=== PATIENT | female | born 1985 | race Two or more races ===

== ENCOUNTER 2017-02-09 10:33 | Emergency (ER) | payer OTHER ==
[~2017-02-09] VITALS: Ht 160 cm; Wt 61.2 kg
--- NOTE | 2017-02-09 10:35 | NUR ---
PT BIB SELF BILATERAL GROIN PAIN X 4 DAYS; HAD FEVER SUNDAY NIGHT; + DYSURIA C/O LABIAL PAIN/INNER LABIA WELL X 2 DAYS NOW; + ACTIVE;PROTECTED SEX . VSS. AWAITING MD ORDER
[2017-02-09] MEDS ORDERED: DIVA500T2 PO (10:44)
[2017-02-09] MEDS ORDERED: ETHO250S2 PO (10:44)
--- NOTE | 2017-02-09 10:45 | NUR ---
AT BEDSIDE FOR EVAL
--- NOTE | 2017-02-09 11:00 | NUR ---
URINE SAMPLE COLLECTED SENT TO LAB
--- NOTE | 2017-02-09 11:10 | NUR ---
[address] AT BEDSIDE
[2017-02-09 11:31] LABS: APPEARANCE,URINE Clear (CLEAR); BILIRUBIN,URINE Negative (NEGATIVE); BLOOD, URINE Small Ery/uL (NEGATIVE); COLOR,URINE Yellow (YELLOW); KETONES,URINE Negative (NEGATIVE); LEUKOCYTE ESTERASE ,URINE Small (NEGATIVE); NITRITE, URINE Negative (NEGATIVE); PH,URINE 5.5 (5.0-8.0); PROTEIN,URINE Negative (NEGATIVE); UGLUCOSE Negative (NEGATIVE); UROBILINOGEN,URINE 0.2 EU/dL (0.2)
[2017-02-09 11:48] LABS: ADD URINE CULTURE YES; BACTERIA,URINE Few /HPF (None Seen)
--- NOTE | 2017-02-09 11:50 | NUR ---
DR WISEMAN AT BEDSIDE FOR REEVAL
[2017-02-09] MEDS ORDERED: AZITHROMYCIN 250 MG TABLET ONE (11:53)
[2017-02-09] MEDS ORDERED: ACYCLOVIR 200 MG CAPSULE ONE (11:54)
[2017-02-09] MEDS ORDERED: LIDOCAINE /MPF 1% VIAL 5 ML VIAL ONE (11:54)
[2017-02-09] MEDS ORDERED: CEFTRIAXONE 500 MG VIAL ONE (11:54)
[2017-02-09] MEDS ORDERED: ACYCLOVIR 200 MG CAPSULE PO ONE (12:00)
[2017-02-09] MEDS ORDERED: AZITHROMYCIN 250 MG TABLET PO ONE (12:00)
[2017-02-09] MEDS ORDERED: CEFTRIAXONE 500 MG VIAL IM ONE (12:00)
--- NOTE | 2017-02-09 12:07 | NUR ---
Patient discharged to home in stable condition. Written and verbal after care instructions given. Patient verbalizes understanding of instruction.
[2017-02-09 12:08] VITALS: BP 110/72
[2017-02-12 13:14] LABS: *NEISSERIA GONORRHOEAE NAA Negative (Negative); CHLAMYDIA TRACHOMATIS NAA Negative (Negative)
== END 2017-02-09 12:10 | disposition home or self-care (01) ==
LOC: ER 10:34
DX: B00.9 Herpesviral infection, unspecified (principal); G40.909 Epilepsy, unspecified, not intractable, without status epilepticus
CPT/HCPCS: 76856; 81001; 84703; 87077; 87086; 87491; 87591; 96372; 99285; A4606; J0696; J3490; Z7610; 81000-TC

== ENCOUNTER 2022-04-18 12:36 | Outpatient (CLI) | payer BC ==
[~2022-04-18 12:36] MED LIST: DIVA500T2 PO; ETHO250S3 PO
== END 2022-04-18 23:59 | disposition home or self-care (01) ==
LOC: MSC 12:36
PROVIDERS: ATTEND Anesthesiology
DX: M47.27 Other spondylosis with radiculopathy, lumbosacral region (principal); M51.26 Other intervertebral disc displacement, lumbar region; G89.4 Chronic pain syndrome; Z79.899 Other long term (current) drug therapy

== ENCOUNTER 2022-04-28 04:58 | Outpatient (CLI) | payer BC | END 2022-04-28 23:59 | disposition home or self-care (01) | LOC: LAB 04:58 | PROVIDERS: ATTEND Anesthesiology | DX: Z01.812 Encounter for preprocedural laboratory examination (principal); Z20.822 Contact with and (suspected) exposure to COVID-19 | CPT/HCPCS: U0003; C9803 ==

== ENCOUNTER 2022-05-04 08:09 | Day surgery (SDC) | payer BC ==
--- NOTE | 2022-05-04 09:05 | NUR ---
RN NOTE RECEIVED PATIENT AMBULATORY FROM HOME ACCOMPANIED BY MOTHER NAMRATA @[id number]. PATIENT FOR LUMBAR EPIDURAL STEROID INJECTION WITH DR. YUSUF. PATIENT HAS BEEN NPO SINCE MIDNIGHT. PRE-OP CHECKLIST DONE WITH PATIENT. CONSENTS SIGNED. PATIENT PICKED -UP @ 0900 VIA BED IN STABLE CONDITION.
[2022-05-04] MEDS ORDERED: methylPREDNISolone ACETATE 80 MG/ML VIAL ONE (09:29)
[2022-05-04] MEDS ORDERED: LIDOCAINE HCL/MPF 1% 30 ML VIAL IJ ONE (09:29)
[2022-05-04] MEDS ORDERED: BUPIVACAINE 0.25% 75 MG/30 ML VIAL ONE (09:29)
--- NOTE | 2022-05-04 10:00 | NUR ---
RN NOTE PATIENT BACK FROM PROCEDURE IN STABLE CONDITION. VITAL SIGNS: 103/53, 63, 97.6, 18, SPO2 99% IN ROOM AIR. PATIENT OK TO BE DISCHARGE HOME ONCE STABLE.
--- NOTE | 2022-05-04 10:59 | NUR ---
RN NOTES PATIENT DISCHARGED HOME IN STABLE CONDITION. EXITCARE FOLDER GIVEN TO PATIENT, DISCHARGE INSTRUCTIONS PROVIDED WITH VERBALIZATION OF UNDERSTANDING. ARM NAME BAND REMOVED. PATIENT LEFT UNIT @1055 AMBULATORY WITH MOTHER NAMRATA. CN AWARE OF DISCHARGE.
== END 2022-05-04 13:00 | disposition home or self-care (01) ==
LOC: DS 08:09 → UNDOADMIN 08:11 → MED 08:11 → UNDODISIN 10:50 → DS 13:00
PROVIDERS: ATTEND Anesthesiology
DX: M54.50 Low back pain, unspecified (principal); M47.816 Spondylosis without myelopathy or radiculopathy, lumbar region; G89.29 Other chronic pain
CPT/HCPCS: 62323; 72020; J1040; J3490 ×2; A6209; G0378

== ENCOUNTER 2022-05-23 08:51 | Outpatient (CLI) | payer BC | END 2022-05-23 23:59 | disposition home or self-care (01) | LOC: MSC 08:51 | PROVIDERS: ATTEND Anesthesiology | DX: G89.4 Chronic pain syndrome (principal); M51.26 Other intervertebral disc displacement, lumbar region; M47.27 Other spondylosis with radiculopathy, lumbosacral region ==

== ENCOUNTER 2022-07-25 09:13 | Outpatient (CLI) | payer BC | END 2022-07-25 23:59 | disposition home or self-care (01) | LOC: MSC 09:13 | PROVIDERS: ATTEND Anesthesiology | DX: G89.4 Chronic pain syndrome (principal); M51.26 Other intervertebral disc displacement, lumbar region; M47.27 Other spondylosis with radiculopathy, lumbosacral region ==

== ENCOUNTER 2022-08-03 10:47 | Outpatient (CLI) | payer BC | END 2022-08-03 23:59 | disposition home or self-care (01) | LOC: LAB 10:47 | PROVIDERS: ATTEND Anesthesiology | DX: Z01.812 Encounter for preprocedural laboratory examination (principal); Z20.822 Contact with and (suspected) exposure to COVID-19 | CPT/HCPCS: U0003; C9803 ==

== ENCOUNTER 2022-08-08 07:41 | Day surgery (SDC) | payer BC ==
[2022-08-08] MEDS ORDERED: IOHEXOL 50 ML IV ONE (08:20)
[2022-08-08] MEDS ORDERED: LIDOCAINE HCL/MPF 1% 30 ML VIAL IJ ONE (08:20)
[2022-08-08] MEDS ORDERED: methylPREDNISolone ACETATE 80 MG/ML VIAL ONE (08:21)
[2022-08-08] MEDS ORDERED: BUPIVACAINE 0.25% 75 MG/30 ML VIAL ONE (08:21)
== END 2022-08-08 09:45 | disposition home or self-care (01) ==
LOC: DS 07:41
PROVIDERS: ATTEND Anesthesiology
DX: M47.26 Other spondylosis with radiculopathy, lumbar region (principal)
CPT/HCPCS: 62323; 72020; 84703; J1040; J3490 ×2; Q9967